=== PATIENT | female | born 1985 | race Caucasian/White ===

== ENCOUNTER 2017-06-23 20:37 | Emergency (ER) | payer BC, MEDICAID ==
[2017-06-23] MEDS ORDERED: Cetirizine 10 MG Tab PO ONE (20:46)
[2017-06-23] MEDS ORDERED: diphenhydrAMINE 25 MG Cap PO ONE (20:46)
[2017-06-23] MEDS ORDERED: Famotidine 20 MG Tab PO ONE (20:47)
[2017-06-23] MEDS ORDERED: predniSONE 20 MG Tab PO ONE (20:47)
--- NOTE | 2017-06-23 20:53 | EDM.PDOC ---
ED HPI GENERAL MEDICAL PROBLEM - General Chief Complaint: Allergic Reaction Stated Complaint: ALLERGIC REACTION PER PT Time Seen by Provider: 06/23/17 20:40 Source of Information: Reports: Patient History Limitations: Reports: No Limitations - History of Present Illness INITIAL COMMENTS - FREE TEXT/NARRATIVE: 32 yo female presents with presumed allergic reaction. Took a final dose of cefdinir today and later broke out in hives all over her body. No difficulty breathing or swallowing. No change in her voice. No self tx. Drove herself to the ER. Onset: Today Onset Date: 06/23/17 Onset Time: 19:00 Duration: Minutes:, Constant Location: Reports: Face, Neck, Chest, Abdomen, Back, Upper Extremity, Left, Upper Extremity, Right, Lower Extremity, Left, Lower Extremity, Right, Generalized Quality: Reports: Other (itchy) Severity: Moderate Improves with: Reports: None Worsens with: Reports: Medication (? cefdinir) Context: Reports: Other (recent antibiotic course.) Associated Symptoms: Reports: Rash (with itching) Treatments DETAILER: Reports: Other (see below) (None) - Related Data Allergies Allergy/AdvReac Type Severity Reaction Status Date / Time amoxicillin Allergy Hives Verified 06/23/17 20:50 cefdinir [From Omnicef] Allergy Hives Verified 06/23/17 20:50 Home Meds: Home Meds Norgestimate-Ethinyl Estradiol [Trinessa Lo Tablet] 1 tab PO DAILY 06/23/17 [ History] Spironolactone [Aldactone] 25 mg PO DAILY 06/23/17 [History] predniSONE [Prednisone] 20 mg PO BID #7 tablet 06/23/17 [Rx] ED ROS ALLERGIC REACTION - Review of Systems Review Of Systems: Unable To Obtain Constitutional: Reports: Weight Gain Respiratory: Reports: No Symptoms Cardiovascular: Reports: No Symptoms GI/Abdominal: Reports: No Symptoms : Reports: No Symptoms Musculoskeletal: Reports: No Symptoms Skin: Reports: Pruritis, Erythema, Urticaria Neurological: Reports: No Symptoms ED EXAM GENERAL NO PERIP PULSE - Physical Exam Exam: See Below Exam Limited By: No Limitations General Appearance: Alert, WD/WN, No Apparent Distress Eye Exam: Bilateral Eye: Normal Inspection Ears: Normal External Exam, Normal Canal, Hearing Grossly Normal, Normal TMs Nose: Normal Inspection, Normal Mucosa, No Blood Throat/Mouth: Normal Inspection, Normal Lips, Normal Teeth, Normal Oropharynx, Normal Voice, No Airway Compromise Head: Atraumatic, Normocephalic Neck: Normal Inspection, Supple, Non-Tender Respiratory/Chest: No Respiratory Distress, Lungs Clear, Normal Breath Sounds, No Accessory Muscle Use Cardiovascular: Regular Rate, Rhythm, No Edema. No: Tachycardia GI/Abdominal: Normal Bowel Sounds, Soft Back Exam: Normal Inspection. No: CVA Tenderness (R), CVA Tenderness (L) Neurological: Alert, Oriented, CN II-XII Intact, Normal Cognition, No Motor/ Sensory Deficits Psychiatric: Normal Affect, Normal Mood Skin Exam: Warm, Dry, Intact, Erythema, Rash, Other (scattered hives) Course - Vital Signs Text/Narrative:: Prednisone 20 mg po, cetirizine 10 mg po, diphenhydramine 25 mg po, famotidine 40 mg po-modest improvement, no worsening after observation. Last Recorded V/S: Last Vital Signs Temp 36.6 C 06/23/17 21:10 Pulse 95 06/23/17 21:10 Resp 18 06/23/17 21:10 BP 126/90 06/23/17 21:10 Pulse Ox 100 06/23/17 21:10 - Orders/Labs/Meds Meds: Medications Discontinued Medications Generic Name Dose Route Start Last Admin Trade Name Gordon PRN Reason Stop Dose Admin Cetirizine HCl 10 mg 06/23/17 20:46 06/23/17 20:55 Zyrtec PO 06/23/17 20:47 10 mg ONETIME ONE Administration Diphenhydramine HCl 25 mg 06/23/17 20:46 06/23/17 20:55 Benadryl PO 06/23/17 20:47 25 mg ONETIME ONE Administration Famotidine 40 mg 06/23/17 20:47 06/23/17 20:55 Pepcid PO 06/23/17 20:48 40 mg ONETIME ONE Administration Prednisone 20 mg 06/23/17 20:47 06/23/17 20:55 Prednisone PO 06/23/17 20:48 20 mg ONETIME ONE Administration Departure - Departure Time of Disposition: 21:44 Disposition: Home, Self-Care 01 Condition: Fair Clinical Impression: Allergy to cephalosporin, Hives - Discharge Information Prescriptions: predniSONE [Prednisone] 20 mg PO BID #7 tablet Referrals: Ammon Mayorga MD [Primary Care Provider] - Forms: ED Department Discharge Additional Instructions: Take prednisone as directed. Avoid cefdinir from now on. Take diphenhydramine up to 75 mg every 6 hrs as needed for hive control. Take cetirizine 10 mg daily. Take famotidine(Pepcid AC) 20 mg every 12 hrs until hives are gone. Recheck if worse.
== END 2017-06-23 21:48 | disposition home or self-care (01) ==
LOC: FB.ED 20:37
DX: L50.0 Allergic urticaria (principal); T36.1X5A Adverse effect of cephalosporins and other beta-lactam antibiotics, initial encounter; Z88.1 Allergy status to other antibiotic agents; Z88.8 Allergy status to other drugs, medicaments and biological substances; Z79.899 Other long term (current) drug therapy
CPT/HCPCS: 99282; A9270